=== PATIENT | male | born 1980 | race Asian ===

== ENCOUNTER 2020-06-10 06:48 | Inpatient (IN) | payer MEDICARE, OTHER ==
--- NOTE | 2020-06-10 07:21 | ED ---
General Adult HPI - General Chief complaint: Psychiatric Symptoms Stated complaint: Mental Health Time Seen by Provider: 06/10/20 06:55 Source: patient, police, RN notes reviewed, old records reviewed Limitations: altered mental status - History of Present Illness Initial comments: This is a 34-year-old male who presents emergency Department in the custody of police police did petition the patient to be evaluated. According to police he was found in the street making no sense and just babbling. I went in to interview the patient he did not answer any of my questions aside from that his from knowing his name. Patient just babbled the whole time I was in the room and did not make any sense. There is no further history available this time - Related Data Home Medications Medication Instructions Recorded Confirmed QUEtiapine [SEROquel] 400 mg PO HS 06/10/20 06/10/20 haloperidoL [Haloperidol] 5 mg PO BID 06/10/20 06/10/20 lamoTRIgine [LaMICtal] 200 mg PO HS 06/10/20 06/10/20 Allergies Allergy/AdvReac Type Severity Reaction Status Date / Time No Known Allergies Allergy Unverified 06/10/20 10:08 Review of Systems ROS Statement: Those systems with pertinent positive or pertinent negative responses have been documented in the HPI. ROS Other: All systems not noted in ROS Statement are negative. Past Medical History Additional Past Medical History / Comment(s): sammie Additional Past Surgical History / Comment(s): [facility] General Exam - General Exam Comments Initial Comments: GENERAL: Patient is well-developed and well-nourished. Patient is nontoxic and well- hydrated and is in no acute distress. ENT: Neck is soft and supple. No significant lymphadenopathy is noted. Oropharynx is clear. Moist mucous membranes. Neck has full range of motion without eliciting any pain. EYES: The sclera were anicteric and conjunctiva were pink and moist. Extraocular movements were intact and pupils were equal round and reactive to light. Eyelids were unremarkable. PULMONARY: Unlabored respirations. Good breath sounds bilaterally. No audible rales rhonchi or wheezing was noted. CARDIOVASCULAR: There is a regular rate and rhythm without any murmurs gallops or rubs. ABDOMEN: Soft and nontender with normal bowel sounds. SKIN: Skin is clear with no lesions or rashes and otherwise unremarkable. NEUROLOGIC: Patient is alert and oriented times one. Cranial nerves II through XII are grossly intact. Patient is moving all 4 extremities voluntarily MUSCULOSKELETAL: Normal extremities with adequate strength and full range of motion. LYMPHATICS: No significant lymphadenopathy is noted PSYCHIATRIC: Patient is babbling and hyperverbal and is not answering any of my questions Limitations: altered mental status Course Vital Signs 06/10/20 06/10/20 06/10/20 06:52 07:46 09:00 Temperature 97.5 F L 98.2 F Pulse Rate 106 H 71 62 Respiratory 19 20 19 Rate Blood Pressure 153/111 129/81 115/76 O2 Sat by Pulse 98 96 99 Oximetry Medical Decision Making - Lab Data Result diagrams: 06/10/20 07:43 06/10/20 07:43 Lab Results 06/10/20 06/10/20 06/10/20 Range/Units 07:08 07:10 07:43 WBC 8.9 (3.8-10.6) k/uL RBC 4.56 (4.30-5.90) m/uL Hgb 14.2 (13.0-17.5) gm/dL Hct 42.5 (39.0-53.0) % MCV 93.4 (80.0-100.0) fL MCH 31.2 (25.0-35.0) pg MCHC 33.4 (31.0-37.0) g/dL RDW 12.6 (11.5-15.5) % Plt Count 229 (150-450) k/uL Neutrophils % 80 % Lymphocytes % 12 % Monocytes % 6 % Eosinophils % 1 % Basophils % 1 % Neutrophils # 7.1 (1.3-7.7) k/uL Lymphocytes # 1.1 (1.0-4.8) k/uL Monocytes # 0.5 (0-1.0) k/uL Eosinophils # 0.1 (0-0.7) k/uL Basophils # 0.0 (0-0.2) k/uL Sodium (137-145) mmol/L Potassium (3.5-5.1) mmol/L Chloride (98-107) mmol/L Carbon Dioxide (22-30) mmol/L Anion Gap mmol/L BUN (9-20) mg/dL Creatinine (0.66-1.25) mg/dL Est GFR (CKD-EPI)AfAm (>60 ml/min/1.73 sqM) Est GFR (CKD-EPI)NonAf (>60 ml/min/1.73 sqM) Glucose (74-99) mg/dL Calcium (8.4-10.2) mg/dL Total Bilirubin (0.2-1.3) mg/dL AST (17-59) U/L ALT (4-49) U/L Alkaline Phosphatase (38-126) U/L Total Protein (6.3-8.2) g/dL Albumin (3.5-5.0) g/dL Urine Color Yellow Urine Appearance Clear (Clear) Urine pH 5.5 (5.0-8.0) Ur Specific [place] 1.037 H (1.001-1.035) Urine Protein 1+ H (Negative) Urine Glucose (UA) 1+ H (Negative) Urine Ketones 2+ H (Negative) Urine Blood Negative (Negative) Urine Nitrite Negative (Negative) Urine Bilirubin 1+ H (Negative) Urine Urobilinogen 3.0 (<2.0) mg/dL Ur Leukocyte Esterase Negative (Negative) Urine RBC 2 (0-5) /hpf Urine WBC 3 (0-5) /hpf Ur Squamous Epith Cells <1 (0-4) /hpf Urine Bacteria Rare H (None) /hpf Urine Mucus Many H (None) /hpf Urine Opiates Screen Not Detected (NotDetected) Ur Oxycodone Screen Not Detected (NotDetected) Urine Methadone Screen Not Detected (NotDetected) Ur Propoxyphene Screen Not Detected (NotDetected) Ur Barbiturates Screen Not Detected (NotDetected) U Tricyclic Antidepress Not Detected (NotDetected) Ur Phencyclidine Scrn Not Detected (NotDetected) Ur Amphetamines Screen Not Detected (NotDetected) U Methamphetamines Scrn Not Detected (NotDetected) U Benzodiazepines Scrn Not Detected (NotDetected) Urine Cocaine Screen Not Detected (NotDetected) U Marijuana (THC) Screen Not Detected (NotDetected) Serum Alcohol mg/dL 06/10/20 Range/Units 07:43 WBC (3.8-10.6) k/uL RBC (4.30-5.90) m/uL Hgb (13.0-17.5) gm/dL Hct (39.0-53.0) % MCV (80.0-100.0) fL MCH (25.0-35.0) pg MCHC (31.0-37.0) g/dL RDW (11.5-15.5) % Plt Count (150-450) k/uL Neutrophils % % Lymphocytes % % Monocytes % % Eosinophils % % Basophils % % Neutrophils # (1.3-7.7) k/uL Lymphocytes # (1.0-4.8) k/uL Monocytes # (0-1.0) k/uL Eosinophils # (0-0.7) k/uL Basophils # (0-0.2) k/uL Sodium 140 (137-145) mmol/L Potassium 3.3 L (3.5-5.1) mmol/L Chloride 106 (98-107) mmol/L Carbon Dioxide 20 L (22-30) mmol/L Anion Gap 14 mmol/L BUN 23 H (9-20) mg/dL Creatinine 1.04 (0.66-1.25) mg/dL Est GFR (CKD-EPI)AfAm >90 (>60 ml/min/1.73 sqM) Est GFR (CKD-EPI)NonAf >90 (>60 ml/min/1.73 sqM) Glucose 156 H (74-99) mg/dL Calcium 9.7 (8.4-10.2) mg/dL Total Bilirubin 1.1 (0.2-1.3) mg/dL AST 38 (17-59) U/L ALT 28 (4-49) U/L Alkaline Phosphatase 77 (38-126) U/L Total Protein 8.1 (6.3-8.2) g/dL Albumin 4.9 (3.5-5.0) g/dL Urine Color Urine Appearance (Clear) Urine pH (5.0-8.0) Ur Specific [place] (1.001-1.035) Urine Protein (Negative) Urine Glucose (UA) (Negative) Urine Ketones (Negative) Urine Blood (Negative) Urine Nitrite (Negative) Urine Bilirubin (Negative) Urine Urobilinogen (<2.0) mg/dL Ur Leukocyte Esterase (Negative) Urine RBC (0-5) /hpf Urine WBC (0-5) /hpf Ur Squamous Epith Cells (0-4) /hpf Urine Bacteria (None) /hpf Urine Mucus (None) /hpf Urine Opiates Screen (NotDetected) Ur Oxycodone Screen (NotDetected) Urine Methadone Screen (NotDetected) Ur Propoxyphene Screen (NotDetected) Ur Barbiturates Screen (NotDetected) U Tricyclic Antidepress (NotDetected) Ur Phencyclidine Scrn (NotDetected) Ur Amphetamines Screen (NotDetected) U Methamphetamines Scrn (NotDetected) U Benzodiazepines Scrn (NotDetected) Urine Cocaine Screen (NotDetected) U Marijuana (THC) Screen (NotDetected) Serum Alcohol <10 mg/dL Disposition Clinical Impression: Psychosis Disposition: ADMITTED IP TO THIS HOSP Referrals: None,Stated [REFERRING] - 1-2 days Time of Disposition: 13:48
[2020-06-10 07:28] LABS: Amphetamine Screen,Urine Not Detected (NotDetected); Barbiturate Screen,Urine Not Detected (NotDetected); Benzodiazepines Screen,Urine Not Detected (NotDetected); Cocaine Screen,Urine Not Detected (NotDetected); Methadone Screen, Urine Not Detected (NotDetected); Opiate Screen,Urine Not Detected (NotDetected); Oxycodone Screen, Urine Not Detected (NotDetected); Phencyclidine Screen,Urine Not Detected (NotDetected); Tricyclic Antidepressant,Urine Not Detected (NotDetected); Urn Cannabinoid Scrn Not Detected (NotDetected)
[2020-06-10 07:28] LABS: Appearance,Urine Clear (Clear); Bacteria,Urine Rare /hpf; Bilirubin,Urine 1+ (Negative); Blood,Urine Negative (Negative); Color,Urine Yellow; Glucose,Urine (UA) 1+ (Negative); Leukocyte Esterase,Urine Negative (Negative); Mucus,Urine Many /hpf; Nitrite,Urine Negative (Negative); PH, Urine 5.5 (5.0-8.0); Protein,Urine 1+ (Negative); RBC,Urine 2 /hpf (0-5); Specific Gravity,Urine 1.037 (1.001-1.035); Squamous Epithelial Cell,Urine <1 /hpf (0-4); WBC,Urine 3 /hpf (0-5)
[2020-06-10 07:36] LABS: Ketones,Urine 2+ (Negative)
[2020-06-10 08:01] LABS: Basophils % (A) 1 %; Eosinophils # (A) 0.1 k/uL (0-0.7); Eosinophils % (A) 1 %; HCT 42.5 % (39.0-53.0); HGB 14.2 gm/dL (13.0-17.5); Lymphocytes # (A) 1.1 k/uL (1.0-4.8); Lymphocytes % (A) 12 %; MCH 31.2 pg (25.0-35.0); MCHC 33.4 g/dL (31.0-37.0); MCV 93.4 fL (80.0-100.0); Mean Platelet Volume 7.9; Monocytes # (A) 0.5 k/uL (0-1.0); Monocytes % (A) 6 %; Neutrophils # (A) 7.1 k/uL (1.3-7.7); Neutrophils % (A) 80 %; Platelet Count 229 k/uL (150-450); RBC 4.56 m/uL (4.30-5.90); RDW 12.6 % (11.5-15.5); WBC 8.9 k/uL (3.8-10.6)
[2020-06-10 08:12] LABS: ALT 28 U/L (4-49); AST 38 U/L (17-59); African American GFR (CKD) >90 (>60 ml/min/1.73 sqM); Albumin 4.9 g/dL (3.5-5.0); Alcohol <10 mg/dL; Alkaline Phosphatase 77 U/L (38-126); Anion Gap 14 mmol/L; Blood Urea Nitrogen 23 mg/dL (9-20); Calcium 9.7 mg/dL (8.4-10.2); Carbon Dioxide 20 mmol/L (22-30); Chloride 106 mmol/L (98-107); Glucose 156 mg/dL (74-99); Non-African American GFR(CKD) >90 (>60 ml/min/1.73 sqM); Potassium 3.3 mmol/L (3.5-5.1); Sodium 140 mmol/L (137-145); Total Bilirubin 1.1 mg/dL (0.2-1.3); Total Protein 8.1 g/dL (6.3-8.2)
[2020-06-10] MEDS ORDERED: SODIUM CHLORIDE 0.9% 1,000 ML IV ONE (08:16)
[2020-06-10] MEDS ORDERED: SODIUM CHLORIDE 0.9% 500 ML 500 ML IV ONE (08:16)
[2020-06-10] MEDS ORDERED: LORazepam 1 MG TAB PO PRN (14:11)
[2020-06-10] MEDS ORDERED: ZIPRASIDONE 20 MG VIAL IM PRN (14:11)
[2020-06-10] MEDS ORDERED: MAG HYDROX/AL HYDROX/SIMETH 30 ML CUP PO PRN (14:11)
[2020-06-10] MEDS ORDERED: MAGNESIUM HYDROXIDE 2,400 MG/10 ML CUP PO PRN (14:11)
[2020-06-10] MEDS ORDERED: LORazepam 2 MG/ML INJ IM PRN ×2 (14:13→14:33)
[2020-06-10] MEDS: NICOTINE 14MG/24HR PATCH TRANSDERM SCH (14:46)
[2020-06-10] MEDS ORDERED: QUEtiapine 200 MG TAB PO SCH (21:00)
[2020-06-10] MEDS ORDERED: lamoTRIgine 100 MG TAB PO SCH (21:00)
[2020-06-11] MEDS: haloperidoL 5 MG TAB PO SCH ×2 (00:37→09:55)
[2020-06-11] MEDS: NICOTINE 14MG/24HR PATCH TRANSDERM SCH (09:55)
[2020-06-11] MEDS ORDERED: POTASSIUM CHLORIDE ER 20 MEQ TAB.ER PO STA (12:08)
--- NOTE | 2020-06-11 12:12 | P.CONS ---
History of Present Illness - Reason for Consult Medical clearance, hypokalemia - History of Present Illness 40-year-old male was admitted after petitioned by police to be evaluated in the psychiatric floor. Patient denied any fever chills nausea vomiting abdominal pain dysuria. Patient to potassium is bit low which will be replaced and. Patient doesn't have any significant medical problems does smoke a pack of cigarette per day Review of Systems REVIEW OF SYSTEMS: CONSTITUTIONAL: No fever, no malaise, no fatigue. HEENT: No recent visual problems or hearing problems. Denied any sore throat. CARDIOVASCULAR: No chest pain, orthopnea, PND, no palpitations, no syncope. PULMONARY: No shortness of breath, no cough, no hemoptysis. GASTROINTESTINAL: No diarrhea, no nausea, no vomiting, no abdominal pain. NEUROLOGICAL: No headaches, no weakness, no numbness. HEMATOLOGICAL: Denies any bleeding or petechiae. GENITOURINARY: Denies any burning micturition, frequency, or urgency. MUSCULOSKELETAL/RHEUMATOLOGICAL: Denies any joint pain, swelling, or any muscle pain. ENDOCRINE: Denies any polyuria or polydipsia. The rest of the 14-point review of systems is negative. Past Medical History Additional Past Medical History / Comment(s): sammie Additional Past Surgical History / Comment(s): sammie Medications and Allergies Home Medications Medication Instructions Recorded Confirmed Type QUEtiapine [SEROquel] 400 mg PO HS 06/10/20 06/10/20 History haloperidoL [Haloperidol] 5 mg PO BID 06/10/20 06/10/20 History lamoTRIgine [LaMICtal] 200 mg PO HS 06/10/20 06/10/20 History Allergies Allergy/AdvReac Type Severity Reaction Status Date / Time No Known Allergies Allergy Unverified 06/10/20 10:08 Physical Exam Vitals: Vital Signs Temp Pulse Resp BP Pulse Ox 06/11/20 06:21 98.3 F 68 16 135/78 06/10/20 14:31 99.1 F 65 14 141/86 98 PHYSICAL EXAMINATION: GENERAL: The patient is alert and oriented x3, not in any acute distress. Well developed, well nourished. HEENT: Pupils are round and equally reacting to light. EOMI. No scleral icterus. No conjunctival pallor. Normocephalic, atraumatic. No pharyngeal erythema. No thyromegaly. CARDIOVASCULAR: S1 and S2 present. No murmurs, rubs, or gallops. PULMONARY: Chest is clear to auscultation, no wheezing or crackles. ABDOMEN: Soft, nontender, nondistended, normoactive bowel sounds. No palpable organomegaly. MUSCULOSKELETAL: No joint swelling or deformity. EXTREMITIES: No cyanosis, clubbing, or pedal edema. NEUROLOGICAL: Gross neurological examination did not reveal any focal deficits. SKIN: No rashes. Results CBC & Chem 7: 06/10/20 07:43 06/10/20 07:43 Labs: Abnormal Lab Results - Last 24 Hours (Table) 06/10/20 Range/Units 07:43 HDL Cholesterol 31 L (40-60) mg/dL Assessment and Plan Plan: -Mild hypokalemia potassium will be replaced -Bipolar disorder with possible psychosis: Management as per primary service -Nicotine abuse: Counseling was provided
--- NOTE | 2020-06-11 12:34 | P.HP ---
Psychiatric H&P - . H&P Date: 06/11/20 History & Physical: Allergies Allergy/AdvReac Type Severity Reaction Status Date / Time No Known Allergies Allergy Unverified 06/10/20 10:08 Vital Signs Temp 98.3 F 06/11/20 06:21 Pulse 68 06/11/20 06:21 Resp 16 06/11/20 06:21 BP 135/78 06/11/20 06:21 Pulse Ox 98 06/10/20 14:31 Laboratory Last Values WBC 8.9 k/uL (3.8-10.6) 06/10/20 07:43 RBC 4.56 m/uL (4.30-5.90) 06/10/20 07:43 Hgb 14.2 gm/dL (13.0-17.5) 06/10/20 07:43 Hct 42.5 % (39.0-53.0) 06/10/20 07:43 MCV 93.4 fL (80.0-100.0) 06/10/20 07:43 MCH 31.2 pg (25.0-35.0) 06/10/20 07:43 MCHC 33.4 g/dL (31.0-37.0) 06/10/20 07:43 RDW 12.6 % (11.5-15.5) 06/10/20 07:43 Plt Count 229 k/uL (150-450) 06/10/20 07:43 Neutrophils % 80 % 06/10/20 07:43 Lymphocytes % 12 % 06/10/20 07:43 Monocytes % 6 % 06/10/20 07:43 Eosinophils % 1 % 06/10/20 07:43 Basophils % 1 % 06/10/20 07:43 Neutrophils # 7.1 k/uL (1.3-7.7) 06/10/20 07:43 Lymphocytes # 1.1 k/uL (1.0-4.8) 06/10/20 07:43 Monocytes # 0.5 k/uL (0-1.0) 06/10/20 07:43 Eosinophils # 0.1 k/uL (0-0.7) 06/10/20 07:43 Basophils # 0.0 k/uL (0-0.2) 06/10/20 07:43 Sodium 140 mmol/L (137-145) 06/10/20 07:43 Potassium 3.3 mmol/L (3.5-5.1) L 06/10/20 07:43 Chloride 106 mmol/L (98-107) 06/10/20 07:43 Carbon Dioxide 20 mmol/L (22-30) L 06/10/20 07:43 Anion Gap 14 mmol/L 06/10/20 07:43 BUN 23 mg/dL (9-20) H 06/10/20 07:43 Creatinine 1.04 mg/dL (0.66-1.25) 06/10/20 07:43 Est GFR (CKD-EPI)AfAm >90 (>60 ml/min/1.73 sqM) 06/10/20 07:43 Est GFR (CKD-EPI)NonAf >90 (>60 ml/min/1.73 sqM) 06/10/20 07:43 Glucose 156 mg/dL (74-99) H 06/10/20 07:43 Calcium 9.7 mg/dL (8.4-10.2) 06/10/20 07:43 Total Bilirubin 1.1 mg/dL (0.2-1.3) 06/10/20 07:43 AST 38 U/L (17-59) 06/10/20 07:43 ALT 28 U/L (4-49) 06/10/20 07:43 Alkaline Phosphatase 77 U/L (38-126) 06/10/20 07:43 Total Protein 8.1 g/dL (6.3-8.2) 06/10/20 07:43 Albumin 4.9 g/dL (3.5-5.0) 06/10/20 07:43 Triglycerides 113 mg/dL (<150) 06/10/20 07:43 Cholesterol 150 mg/dL (<200) 06/10/20 07:43 LDL Cholesterol, Calc 96 mg/dL (0-99) 06/10/20 07:43 HDL Cholesterol 31 mg/dL (40-60) L 06/10/20 07:43 TSH 1.340 mIU/L (0.465-4.680) 06/10/20 07:43 Urine Color Yellow 06/10/20 07:10 Urine Appearance Clear (Clear) 06/10/20 07:10 Urine pH 5.5 (5.0-8.0) 06/10/20 07:10 Ur Specific [place] 1.037 (1.001-1.035) H 06/10/20 07:10 Urine Protein 1+ (Negative) H 06/10/20 07:10 Urine Glucose (UA) 1+ (Negative) H 06/10/20 07:10 Urine Ketones 2+ (Negative) H 06/10/20 07:10 Urine Blood Negative (Negative) 06/10/20 07:10 Urine Nitrite Negative (Negative) 06/10/20 07:10 Urine Bilirubin 1+ (Negative) H 06/10/20 07:10 Urine Urobilinogen 3.0 mg/dL (<2.0) 06/10/20 07:10 Ur Leukocyte Esterase Negative (Negative) 06/10/20 07:10 Urine RBC 2 /hpf (0-5) 06/10/20 07:10 Urine WBC 3 /hpf (0-5) 06/10/20 07:10 Ur Squamous Epith Cells <1 /hpf (0-4) 06/10/20 07:10 Urine Bacteria Rare /hpf (None) H 06/10/20 07:10 Urine Mucus Many /hpf (None) H 06/10/20 07:10 Urine Opiates Screen Not Detected (NotDetected) 06/10/20 07:08 Ur Oxycodone Screen Not Detected (NotDetected) 06/10/20 07:08 Urine Methadone Screen Not Detected (NotDetected) 06/10/20 07:08 Ur Propoxyphene Screen Not Detected (NotDetected) 06/10/20 07:08 Ur Barbiturates Screen Not Detected (NotDetected) 06/10/20 07:08 U Tricyclic Antidepress Not Detected (NotDetected) 06/10/20 07:08 Ur Phencyclidine Scrn Not Detected (NotDetected) 06/10/20 07:08 Ur Amphetamines Screen Not Detected (NotDetected) 06/10/20 07:08 U Methamphetamines Scrn Not Detected (NotDetected) 06/10/20 07:08 U Benzodiazepines Scrn Not Detected (NotDetected) 06/10/20 07:08 Urine Cocaine Screen Not Detected (NotDetected) 06/10/20 07:08 U Marijuana (THC) Screen Not Detected (NotDetected) 06/10/20 07:08 Serum Alcohol <10 mg/dL 06/10/20 07:43 06/11/20 08:38 This is a 34-year-old male who presents emergency Department in the custody of police police filled out a petition for the patient to be evaluated. According to police he was found in the street making no sense and just babbling. I went in to interview the patient he did not answer any of my questions aside from knowing his name. Patient just babbled the whole time in the emergency room and did not make any sense. The patient was brought up to the psychiatric unit and having had some medicine is doing better. It seems that there was a break in service is at the [facility] connected to the [place] [id number] and the patient has not had any medicine for a month and became quite psychotic. ( I think he has a baseline difficulty with cognition but he can at least try to answer questions) he is basically here to get back on his medications. Current medications: He has not been taking be what he was supposed to be on was evidently Seroquel 400 Haldol 5 twice a day and Lamictal. Past psychiatric history: The patient is a poor historian so this was hard to establish she has not been in our hospital before. In addition to current medicine he has taken Lexapro and Cogentin in the past Medical problems are denied. On his labs he had mild hypokalemia which will be replaced. He appears to have mild exophthalmos but his TSH is fine Social history: The patient says he is the fifth of 10 children born to his parents and stayed together until dad when the patient was 26 he does not know why. He denies anyone else in the family has any kind of psychiatric problem as far as he knows he had a normal and early development. He completed the 12th grade. He worked briefly at [employer] but is on disability and has not worked for many years he has no history. No legal issues. He lives in a fci. (An example of his cognitive functioning is he had no idea how many people were in his fci he tried to count them by remembering their names and room but could not come up with a number) He denies any drug use. And toxicology was negative Mental status exam: The patient is anxious pacing withdrawn disheveled dressed in a hospital gown which keeps falling open and he grabbed and pulled it closed. I asked him what the week it was he said he would have to look at a calendar. I asked him to name the [place] he got [place] then [facility] try [place] and [place]. So he started answering the question of forgot what the question was and rambled off. When asked to subtract 7 from 100 he was overwhelmed so I asked him to subtract 7 from 10 he was overwhelmed so I asked him to use his fingers and see how many would be left if he lost 7 he held up his hands counted all 10 fingers and then couldn't remember what it was he was supposed to do. When asked him AND snakes are alike he was overwhelmed. Gait and station normal eye contact is decreased. He did not seem to be responding t o voices and he denied any. Diagnosis: Psychosis NOS Plan I'll not restart the Lamictal since he been off to long it would be dangerous and I'm not sure as indicated he does not seem to be depressed. I don't like to try both Haldol and Seroquel since Haldol causes progressive brain damage and is redundant to use both Seroquel and Haldol. So increase his Seroquel to 600 forget the Lamictal and Haldol and see if we can stabilize him on one medicine.
[2020-06-11 15:39] LABS: Hemoglobin A1C 5.3 % (4.0-6.0)
[2020-06-11] MEDS: QUEtiapine 200 MG TAB PO SCH (21:50)
--- NOTE | 2020-06-12 08:41 | P.PN ---
Subjective Progress Note Date: 06/12/20 Principal diagnosis: Diagnosis: Psychosis NOS Subjective: Patient says he slept well his appetite is fine he has no clear plans for doing well after discharge (I think that is due to cognitive impairment) Objective: Has some concern about his labs they seem pretty clear to indicate diabetes 1. Blood sugar 156 2. 1+ sugar in his urine 3. Despite high blood sugmar urine was 2+ for sugar Vital signs: Temperature 97.9 heart rate 80 blood pressure 112/74 respirations 16 Group function patient has not been able to go and probably could not function in groups due to confusion Staff assessment: Patient is calm stands staring at himself in the mirror with no expression seems confused. Disheveled dressed only in hospital gown speech is slow and soft and he is withdrawn from peer and staff. Mental status exam patient seems somewhat anxious due to confusion as to where he is why he is here what he needs to do. However is cooperative. I found him standing in front of his marriage staring is that she wasn't sure what he was supposed to do with what he saw. He had been reading a patient's rights both I asked him what that was about and he did not know. He said he was hungry and was time for breakfast was not going to breakfast because he is out of tune with the schedule. He walks somewhat slowly little eye contact decrease psychomotor activity. Medication: He is just on Seroquel 600 at night. I didn't think he needed Haldol as well since it can be brain damaging and he already has some cognitive impairment. Whether he needs a Lamictal or not I don't know what was his cognitive difficulties I would have to be sure someone else was guaranteeing that he always takes it would be dangerous. Assessment: I think the psychosis seems to be clear and his answers at least somewhat fit the questions what I see is residual cognitive impairment. Plan: We need to work him up for diabetes make sure he's got outpatient care they guarantees he gets his medicine and takes it and a guardian and whatever else he might need since he can't make basic decisions. I don't think he needs anything more than the Seroquel for his psychosis Objective - Vital Signs Vital signs: Vital Signs Temp 97.9 F 06/12/20 06:54 Pulse 80 06/12/20 06:54 Resp 16 06/12/20 06:54 BP 112/74 06/12/20 06:54 Pulse Ox 98 06/12/20 06:54 - Labs CBC & Chem 7: 06/10/20 07:43 06/10/20 07:43
[2020-06-12] MEDS: NICOTINE 14MG/24HR PATCH TRANSDERM SCH (10:01)
[2020-06-12] MEDS: QUEtiapine 200 MG TAB PO SCH (21:06)
--- NOTE | 2020-06-13 07:59 | P.PN ---
Subjective Progress Note Date: 06/13/20 Principal diagnosis: Diagnosis: Psychosis NOS Subjective: The patient says he sleeps well, has a good appetite, in fact he kept interrupting our session wondering when breakfast was ready. He denies voices says he is not sad that he is not angry he is not scared Objective: Vital signs temperature 90.8 for heart rate 101 respirations 16 blood pressure 132/75 He has had asked for internal medicine to make an opinion as to whether the patient is diabetic I do not see a so I'll repeat that requests. Groups: The patient has not gone to groups if he did I don't think he could follow what was happening Staff assessment: Patient appears to sleep well Mental status: The patient is cooperative, I saw him standing at the desk for quite a while is staring into space waiting for breakfast. When he sat down I asked him how he had slept and took almost a minute for him to say, "OK". In fact he takes a long time to answer any question. When asked him if he is hearing voices he will eventually say no. However in the middle of talking he will glance up at the ceiling or the corner of the room or examine his hands. He does not seem lethargic so is tolerating the Seroquel well. He is not anxious or agitated and he seems significantly cognitively impaired so sorry for me to assess whether this is psychosis or he just has trouble analyzing what is happening. Assessment: it is very difficult to assess his function if he doesn't go to group. He was asked to come to group and refuses yesterday. I emphasized that he has to go to group frustrated tell whether he is doing well enough to discharge. Medications Seroquel 600 daily at bedtime Objective - Vital Signs Vital signs: Vital Signs Temp 98.4 F 06/13/20 07:00 Pulse 101 H 06/13/20 07:00 Resp 16 06/13/20 07:00 BP 132/75 06/13/20 07:00 Pulse Ox 98 06/12/20 06:54 - Labs CBC & Chem 7: 06/10/20 07:43 06/10/20 07:43
[2020-06-13] MEDS: NICOTINE 14MG/24HR PATCH TRANSDERM SCH (10:34)
[2020-06-13] MEDS: QUEtiapine 200 MG TAB PO SCH (21:08)
[2020-06-14] MEDS: NICOTINE 14MG/24HR PATCH TRANSDERM SCH (09:16)
--- NOTE | 2020-06-14 10:26 | P.PN ---
Subjective Progress Note Date: 06/14/20 Principal diagnosis: Diagnosis: Psychosis NOS Subjective: The patient was in his room putting everything in a paper bag. Asked him if he was cleaning up he said no which is there in the bag. He was willing to come down to my office at which point he was looking under my desk s taring in the corner looking out the window when I asked him when he was looking at he said "nothing". Objective: Patient slept well last night: Groups the patient does not attend makes it hard to assess his general functioning Staff assessment is that the patient seems calm, withdrawn, slow responses, guarded and he denies psychotic symptoms but does appear to be distracted slow to answer simple questions and often looking off as if hearing someone. He has no insight, is alert, awake, no signs of delirium, able to follow directions. He seems to have difficulty making his own decisions. He does not interact with peers except on approach the same is true for staff Vital signs: Temperature 90.8 for heart rate 101 respirations 16 blood pressure 132/75 Labs: Nothing new He seems to be having more trouble than yesterday although he is on a good dose of Seroquel if possible that he needs something more powerful. He had been on Haldol plus Seroquel. For not going to increase his Seroquel as he is not drowsy or dizzy or constipated because it would be nice to stick with one antipsychotic if possible. He was oriented to being in the hospital and at the current Pres. is Babatunde Escobedo and that this is 2019. He did not know the day of the week or the month. Assessment patient seems to be a little worse today in his confusion. Plan: Medications Seroquel 600 mg daily at bedtime which he had been taking regularly. interestingly has not needed the nicotine patch or Ativan I'm going to increase to 800. Objective - Vital Signs Vital signs: Vital Signs Temp 98.4 F 06/13/20 07:00 Pulse 101 H 06/13/20 07:00 Resp 16 06/13/20 07:00 BP 132/75 06/13/20 07:00 Pulse Ox 98 06/12/20 06:54 - Labs CBC & Chem 7: 06/10/20 07:43 06/10/20 07:43
[2020-06-14] MEDS: QUEtiapine 400 MG TAB PO SCH (19:21)
[2020-06-14] MEDS: ACETAMINOPHEN TAB 325 MG TAB PO PRN (19:22)
[2020-06-15] MEDS: NICOTINE 14MG/24HR PATCH TRANSDERM SCH (08:51)
--- NOTE | 2020-06-15 10:27 | P.PN ---
Progress Note - Text Progress Note Date: 06/15/20 I reviewed medical records ,did interview patient and case was discussed in treatment team Patient was standing in front of nursing station and agreed to follow me to office Slept 4 hours ,had PRN Ativan at 19:00 Does not participate in groups Interval History: Patient was dressed in his own cloth ,poor historian ,when I asked him about his family ,he replied "why you want to know ,my dad is buried in ground and my mom living in [place]"he talked about living in [place] till end of middle school then they moved to [place] ,he denies any sleeping problem saying "I slept 7 hours" Mental Status Exam: General Appearance: Patient appears to be stated age is alert, ,cooperative. Patient appears to have marginal hygiene Behavior: Patient was seating calmly ,no agitation ,avoiding eyes contact ,was looking at window off and on Speech: Patient's speech is limited in productivity Mood/Affect: flat affect Suicidality/Homicidality: denies any suicidal or homicidal ideation Perceptions: denies any hallucintion or delusional thinking but seems preoccupied , Though content/process: some halting and blocking Memory and concentration: not able to assess Judgment and insight: limited Assessment Psychosis NOS Plan: -Patient continues to meet criteria for inpatient psychiatric admission for symptom stabilization and safety.,Continue Seroquel 800 mg,encourage participation in groups,SW on board for post-discharge plan
[2020-06-15] MEDS: QUEtiapine 400 MG TAB PO SCH (20:14)
[2020-06-16] MEDS: NICOTINE 14MG/24HR PATCH TRANSDERM SCH (08:27)
--- NOTE | 2020-06-16 17:30 | P.PN ---
Progress Note - Text Progress Note Date: 06/16/20 Subjective: Patient was seen today as a cross coverage for Dr. Sandy. The patient was evaluated, chart reviewed, case discussed with the treatment team. Patient reports good sleep last night with Seroquel, and appetite was reported as "good ". Patient has not been going to groups and other unit activities. The patient is compliant with his medications and denies any adverse reactions. Patient continues to present psychotic per nursing report. He was pacing for most of the day, and has bizarre behavior looking at other patient's rooms. Patient was very superficial in his answers, and he denies feeling depressed, hopeless, or suicidal. Denies any mood swings, irritability, or homicidal ideation. He denies any hallucinations, but he seems responding to internal stimuli. No manic symptoms reported or noticed. Patient presents confused and was mumbling nonsensical words. Objective: Vitals has been reviewed. Mental status examination; Appearance: The patient appears stated age, poorly groomed and dressed, no specific features. Gait/posture: Normal gait, Normal arm swinging: No abnormal movements. Attitude and behavior: Not engaged, not cooperative, poor eye contact. Motor activity: Decreased psychomotor activity Speech: Not spontaneous, slow, soft volume Mood: Anxious Affect: Flat Thought form: Poverty of thoughts Thought content: Non-delusional reported, denies suicidal thoughts, denies homicidal thoughts, denies intentions or plans. Perception: Denies any auditory or visual hallucinations, but presents responding to internal stimuli Attention: No impairment. Orientation: Patient patient was oriented to time place person and situation. Insight: Patient has fair insight about limited psychiatric disorder. Judgment: Patient has fair judgment about limited psychiatric treatment. Assessment: Psychotic disorder, unspecified. Rule out schizophrenia Plan: Continue inpatient level of care due to need for further stabilization Precautions: Continue 15 minutes check for safety. Consider medical consultation if any acute medical issues arise. Provide the patient individual, group therapy, substance use disorder counseling to give better insight and learn coping skills. Medications: Seroquel 800 mg at bedtime for psychotic symptoms. Nicotine replacement treatment. Continue as needed medications for psychiatric emergencies including psychosis, agitation and anxiety. Continue non-psychiatric medications for medical conditions as recommended by the medical team. Discharge patient to OUTPATIENT services upon a stabilization
[2020-06-16] MEDS: QUEtiapine 400 MG TAB PO SCH (20:08)
[2020-06-17] MEDS: NICOTINE 14MG/24HR PATCH TRANSDERM SCH (09:20)
[2020-06-17 13:19] VITALS: BMI 25.7
--- NOTE | 2020-06-17 14:28 | P.PN ---
Progress Note - Text Progress Note Date: 06/17/20 Subjective: Patient was seen today as a cross coverage for Dr. Sandy. The patient was evaluated, chart reviewed, case discussed with the treatment team. Patient continues to present same as yesterday guarded and to some degree paranoid. He was superficial in his answers, and seems responding to internal stimuli. He reports good sleep and fair appetite. Patient doesn't attend groups and pacing for most of the time in the hallway. He continues to take his medications and denies side effects. Denies depression, feeling hopeless or suicidal. Denies any hallucinations, paranoid ideation, or delusions. Denies any manic symptoms. Objective: Vitals has been reviewed. Mental status examination; Appearance: The patient appears stated age, poorly groomed and dressed, no specific features. Gait/posture: Normal gait, Normal arm swinging: No abnormal movements. Attitude and behavior: Not engaged, not cooperative, poor eye contact. Motor activity: Decreased psychomotor activity Speech: Not spontaneous, slow, soft volume Mood: Anxious Affect: Flat Thought form: Poverty of thoughts Thought content: Non-delusional reported, denies suicidal thoughts, denies homicidal thoughts, denies intentions or plans. Perception: Denies any auditory or visual hallucinations, but presents responding to internal stimuli Attention: No impairment. Orientation: Patient patient was oriented to time place person and situation. Insight: Patient has fair insight about limited psychiatric disorder. Judgment: Patient has fair judgment about limited psychiatric treatment. Assessment: Psychotic disorder, unspecified. Rule out schizophrenia Plan: Continue inpatient level of care due to need for further stabilization Precautions: Continue 15 minutes check for safety. Consider medical consultation if any acute medical issues arise. Provide the patient individual, group therapy, substance use disorder counseling to give better insight and learn coping skills. Medications: Seroquel 800 mg at bedtime for psychotic symptoms. Nicotine replacement treatment. Continue as needed medications for psychiatric emergencies including psychosis, agitation and anxiety. Continue non-psychiatric medications for medical conditions as recommended by the medical team. Discharge patient to OUTPATIENT services upon a stabilization
[2020-06-17] MEDS: ACETAMINOPHEN TAB 325 MG TAB PO PRN (20:03)
[2020-06-17] MEDS: QUEtiapine 400 MG TAB PO SCH (20:03)
--- NOTE | 2020-06-18 08:47 | P.PN ---
Progress Note - Text Progress Note Date: 06/18/20 I reviewed medical records ,did interview patient and case was discussed in treatment team Patient was standing in front of nursing station and agreed to follow me to office Slept :6 hours,no PRN since 06/14 TODAY VITALS:Temp:97.6,P:99,R:18,BP:105/65 Withdrawn ,no peer interaction No group participation No physical c/o Interval History: Patient was dressed in his own cloth ,unkept,talked about his Room and board saying "I do not want to go back ,they are spitting in my drink and controlling my food"persecutory delusion ,paranoia , kept talking about "I am adult I do not need guardian ,I have income and I want SW to help me to find my own place",loose of association,denies any hallucination ,seems responding to internal stimuli, Mental Status Exam: General Appearance: Patient appears to be stated age is alert, ,cooperative. Patient appears to have marginal hygiene,staring fixated look Behavior: Patient was seating calmly ,no agitation Speech: hyperverbal ,increased productivity Mood/Affect: flat affect Suicidality/Homicidality: denies any suicidal or homicidal ideation Perceptions: denies any hallucintion but seems responding to internal cues Though content/process: tangential ,illogical ,loose of association Memory and concentration: not able to assess Judgment and insight: limited Assessment Schizophrenia ,paranoia with acute exacerbation Plan: -Patient continues to meet criteria for inpatient psychiatric admission for symptom stabilization and safety.,Continue Seroquel 800 mg,encourage participation in groups,SW on board for post-discharge plan
[2020-06-18] MEDS: NICOTINE 14MG/24HR PATCH TRANSDERM SCH (09:44)
[2020-06-18] MEDS: ACETAMINOPHEN TAB 325 MG TAB PO PRN (15:38)
[2020-06-18] MEDS: QUEtiapine 400 MG TAB PO SCH (20:33)
--- NOTE | 2020-06-19 09:29 | P.PN ---
Progress Note - Text Progress Note Date: 06/19/20 I reviewed medical records ,did interview patient and case was discussed in treatment team Patient was standing in front of nursing station and agreed to follow me to office Slept :6 hours,no PRN since 06/14 Minimal group participation SW NOTE:((Tx team meeting held, case discussed. Pt is improving slightly. He is still unclear when talking about his housing and dc plans however. Pt's guardians state pt can return to the room and board upon dc and continue to f/u with [facility]. 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 Patient appears to have marginal hygiene,staring fixated look Behavior: Patient was seating calmly ,no agitation Speech: hyperverbal ,increased productivity Mood/Affect: flat affect Suicidality/Homicidality: denies any suicidal or homicidal ideation Perceptions: denies any hallucintion but seems responding to internal cues Though content/process: tangential ,illogical ,loose of association Memory and concentration: not able to assess Judgment and insight: limited Assessment Schizoaffective ,bipolar Plan: -Patient continues to meet criteria for inpatient psychiatric admission for symptom stabilization and safety.,Continue Seroquel 800 mg add Lamictal ,encourage participation in groups,SW on board for post-discharge plan
[2020-06-19] MEDS: NICOTINE 14MG/24HR PATCH TRANSDERM SCH (10:19)
[2020-06-19] MEDS: QUEtiapine 400 MG TAB PO SCH (20:28)
[2020-06-20] MEDS: lamoTRIgine 25 MG TAB PO SCH (09:11)
[2020-06-20] MEDS: NICOTINE 14MG/24HR PATCH TRANSDERM SCH (09:11)
--- NOTE | 2020-06-20 12:28 | P.PN ---
Progress Note - Text Progress Note Date: 06/20/20 I reviewed medical records ,did interview patient and case was discussed in treatment team Patient was standing in front of nursing station and agreed to follow me to office Slept 6 hours Minimal group participation From yesterday group: ((Pt. was irritated upon a peer interrupting the pt. when participating in group activity. Pt. stated "I can say what I want to. I am an adult." Pt. was inconsistently redirectable)) Interval History: Patient was dressed in his own cloth ,unkept,talked about unrealistic goals regarding his future,stated "Today I do not have enough story for you ",denies any sleeping or appetite problem,denies any side-effects from medications Mental Status Exam: General Appearance: Patient appears to be stated age is alert, ,cooperative. Patient appears to have marginal hygiene,staring fixated look Behavior: Patient was seating calmly ,no agitation Speech: hyperverbal ,increased productivity Mood/Affect: flat affect Suicidality/Homicidality: denies any suicidal or homicidal ideation Perceptions: denies any hallucintion but seems responding to internal cues Though content/process: tangential ,illogical ,loose of association Memory and concentration: not able to assess Judgment and insight: limited Assessment Schizoaffective ,bipolar Plan: -Patient continues to meet criteria for inpatient psychiatric admission for symptom stabilization and safety.,Continue Seroquel 800 mg add Lamictal ,encourage participation in groups,SW on board for post-discharge plan
[2020-06-20] MEDS: QUEtiapine 400 MG TAB PO SCH (20:21)
[2020-06-21] MEDS: NICOTINE 14MG/24HR PATCH TRANSDERM SCH (08:08)
[2020-06-21] MEDS: lamoTRIgine 25 MG TAB PO SCH (08:09)
--- NOTE | 2020-06-21 09:55 | P.PN ---
Progress Note - Text Progress Note Date: 06/21/20 I reviewed medical records ,did interview patient and case was discussed in treatment team Slept 6.5 ,minimal participation in groups ,went to one group yesterday ,no interaction with other patients Today vitals:Temp 97.7,P:80,R:16,BP:111/76 No agitation or aggressive behavior Interval History: Patient was dressed in his own cloth ,poor historian ,was laying in bed and refused to follow me to office saying "I am tired today,I just need to rest my head",denies any hallucination ,denies any suicidal or homicidal ideation ,no sleeping or appetite problems,compliant with medications and denies any side- effects Mental Status Exam: General Appearance: Patient appears to be stated age is alert, ,cooperative. Patient appears to have marginal hygiene Behavior: Patient was laying in bed,no agitation ,avoiding eyes contact Speech: Patient's speech is limited in productivity Mood/Affect: flat affect Suicidality/Homicidality: denies any suicidal or homicidal ideation Perceptions: denies any hallucintion or delusional thinking but seems preoccupied Though content/process: tangential Memory and concentration: grossly intact Judgment and insight: limited Assessment Schizoaffective versus Schizophrenia Plan: -Patient continues to meet criteria for inpatient psychiatric admission for symptom stabilization and safety.,Continue Seroquel 800 mg and Lamictal ,encourage participation in groups,SW on board for post-discharge plan
[2020-06-21] MEDS: QUEtiapine 400 MG TAB PO SCH (20:06)
[2020-06-22] MEDS: lamoTRIgine 25 MG TAB PO SCH (10:03)
[2020-06-22] MEDS: NICOTINE 14MG/24HR PATCH TRANSDERM SCH (10:03)
--- NOTE | 2020-06-22 10:27 | P.PN ---
Progress Note - Text Progress Note Date: 06/22/20 I reviewed medical records ,did interview patient and case was discussed in treatment team Slept 7 hours ,minimal participation in groups ,went to one group yesterday ,no interaction with other patients Today vitals:Temp 98,P:76,R:17,BP:103/64 No agitation or aggressive behavior Interval History: Patient was dressed in his own cloth ,poor historian ,was laying in bed and agreed to follow me to office ,he stated "I do feel that I am back to normal ,I am new person ,my thinking is clear"head",denies any hallucination ,denies any suicidal or homicidal ideation ,no sleeping or appetite problems,compliant with medications and denies any side-effects Mental Status Exam: General Appearance: Patient appears to be stated age is alert, ,cooperative. Patient appears to have marginal hygiene Behavior: Patient was seating calmly,no agitation ,fair eyes contact Speech: Patient's speech is limited in productivity but coherent Mood/Affect: flat affect Suicidality/Homicidality: denies any suicidal or homicidal ideation Perceptions: denies any hallucintion or delusional thinking but seems preoccupied Though content/process: tangential Memory and concentration: grossly intact Judgment and insight: limited Assessment Schizoaffective versus Schizophrenia Plan: -Patient continues to meet criteria for inpatient psychiatric admission for symptom stabilization and safety.,Continue Seroquel 800 mg and Lamictal ,encourage participation in groups,SW on board for post-discharge plan
[2020-06-22] MEDS: QUEtiapine 400 MG TAB PO SCH (20:18)
[2020-06-23] MEDS: lamoTRIgine 25 MG TAB PO SCH (09:18)
[2020-06-23] MEDS: NICOTINE 14MG/24HR PATCH TRANSDERM SCH (09:18)
--- NOTE | 2020-06-23 16:10 | P.PN ---
Subjective Progress Note Date: 06/23/20 Principal diagnosis: Diagnosis: Psychosis NOS Subjective: When asked him what his plan for doing well after he leaves is, he said that he will live simply but he could not elaborate on that.. Objective: Vital signs temperature 97.6 heart rate 65 respiration 16 blood pressure 100/64 Groups The patient attends but is anxious and tends to wander in and out affect seems blunted does not interact much with peers. Labs nothing recent Staff assessment patient is oriented reasonable insight self-care denies suicidal or homicidal ideas denies hallucinations or delusions interacts well with peers is shy and withdrawn but will respond well even to peers when appropriate. Mental status exam: Patient's affect is flat he came readily 8 and station are normal some decreased psychomotor activity decreased eye contact evidence of responding to voices no tearfulness or aggression Assessment patient continues to meet criteria for psychiatric admission for symptom stabilization a the is on high-dose Seroquel is getting on Lamictal and participating in the group no change suggested at this time. Objective - Vital Signs Vital signs: Vital Signs Temp 97.6 F 06/23/20 06:58 Pulse 65 06/23/20 06:58 Resp 16 06/23/20 06:58 BP 100/64 06/23/20 06:58 Pulse Ox 98 06/22/20 07:01 - Labs CBC & Chem 7: 06/10/20 07:43 06/10/20 07:43
[2020-06-23] MEDS: QUEtiapine 400 MG TAB PO SCH (20:12)
[2020-06-24] MEDS: lamoTRIgine 25 MG TAB PO SCH (09:02)
[2020-06-24] MEDS: NICOTINE 14MG/24HR PATCH TRANSDERM SCH (09:02)
--- NOTE | 2020-06-24 11:31 | P.PN ---
Subjective Progress Note Date: 06/24/20 Principal diagnosis: Diagnosis: Psychosis NOS Subjective: The patient had some questions about his medicine basically that #800 for Seroquel seem like a lot. I explained to him that just means the weight of the pill that yes it is a good solid dose but well within the therapeutic range not dangerously high. He did not complain of any particular problems with being lethargic or dizzy or constipated. In feels like the medicines are helping him, Objective: Vital signs temperature 97.8 heart rate 81 respirations 16 blood pressure 104/68 Labs: nothing new Groups the patient been attending some groups tends to get anxious and leave early and have trouble interacting with peers and is redirectable and attentive when he is there Staff report: Quiet doesn't talk much able take care of ADLs denies suicidal homicidal or psychotic symptoms and has been sleeping reasonably well Mental status exam: Patient is flat affect gait and station are normal psychomotor activity is normal eye contact somewhat decreased no tearfulness no agitation no signs of responding to voices Assessment: Appears to be a handling the medication well with benefit Plan: No change in medication. Objective - Vital Signs Vital signs: Vital Signs Temp 97.8 F 06/24/20 06:30 Pulse 81 06/24/20 06:30 Resp 16 06/24/20 06:30 BP 104/68 06/24/20 06:30 Pulse Ox 98 06/22/20 07:01 Intake & Output 06/23/20 06/24/20 06/24/20 18:59 06:59 18:59 Weight 77.5 kg - Labs CBC & Chem 7: 06/10/20 07:43 06/10/20 07:43
[2020-06-24] MEDS: QUEtiapine 400 MG TAB PO SCH (19:43)
[2020-06-25] MEDS: lamoTRIgine 25 MG TAB PO SCH (08:27)
[2020-06-25] MEDS: NICOTINE 14MG/24HR PATCH TRANSDERM SCH (08:27)
--- NOTE | 2020-06-25 10:03 | P.PN ---
Progress Note - Text Progress Note Date: 06/25/20 I reviewed medical records ,did interview patient and case was discussed in treatment team Slept 7 hours ,minimal participation in groups ,went to one group yesterday ,no interaction with other patients No agitation or aggressive behavior Interval History: Patient was dressed in his own cloth ,poor historian ,was in lounge and agreed to follow me to office ,he stated ""I just feeling tired",denies any hallucination ,denies any suicidal or homicidal ideation ,no sleeping or appetite problems,compliant with medications and denies any side-effects Mental Status Exam: General Appearance: Patient appears to be stated age is alert, ,cooperative. Patient appears to have marginal hygiene Behavior: Patient was seating calmly,no agitation ,fair eyes contact Speech: Patient's speech is limited in productivity but coherent Mood/Affect: flat affect Suicidality/Homicidality: denies any suicidal or homicidal ideation Perceptions: denies any hallucintion or delusional thinking but seems preoccupied Though content/process: tangential Memory and concentration: grossly intact Judgment and insight: limited Assessment Schizoaffective versus Schizophrenia Plan: -Patient continues to meet criteria for inpatient psychiatric admission for symptom stabilization and safety.,Continue Seroquel 800 mg and Lamictal ,encourage participation in groups,SW on board for post-discharge plan
[2020-06-25] MEDS: QUEtiapine 400 MG TAB PO SCH (20:40)
[2020-06-26] MEDS: lamoTRIgine 25 MG TAB PO SCH (09:02)
[2020-06-26] MEDS: NICOTINE 14MG/24HR PATCH TRANSDERM SCH (09:02)
--- NOTE | 2020-06-26 09:31 | P.PN ---
Progress Note - Text Progress Note Date: 06/26/20 I reviewed medical records ,did interview patient and case was discussed in treatment team Slept 6 hours ,minimal participation in groups , ,no interaction with other patients No agitation or aggressive behavior Interval History: Patient was dressed in his own cloth ,poor historian ,was in lounge and agreed to follow me to office ,I told him that probate hearing is tomorrow and I gave him copy ,he replied "This different person <i do not have middle name ,these papers for Cailin Gutierrez ,I am not [place] or [place]"patient got anxious and hyperverbal ,repeating himself and asked if I have copy of his ID to proof that "I DO NOT HAVE MIDDLE NAME"",very concrete,I tried to discuss with him post discharge plan but he replied "I WANT TO HAVE MY OWN PLACE",he has been compliant with medications and denies any side-effect Mental Status Exam: General Appearance: Patient appears to be stated age is alert, ,cooperative. Patient appears to have marginal hygiene Behavior: Patient was seating calmly,no agitation ,fair eyes contact Speech: hyperverbal ,tangential Mood/Affect: flat affect Suicidality/Homicidality: denies any suicidal or homicidal ideation Perceptions: denies any hallucination or delusional thinking but seems preoccupied Though content/process: tangential with loose of association Memory and concentration: grossly intact Judgment and insight: limited Assessment Schizoaffective versus Schizophrenia Plan: -Patient continues to meet criteria for inpatient psychiatric admission for symptom stabilization and safety.,Continue Seroquel 800 mg ,increase Lamictal to 100 mg ,encourage participation in groups,SW on board for post-discharge plan
[2020-06-26] MEDS: QUEtiapine 400 MG TAB PO SCH (20:22)
[2020-06-27] MEDS: NICOTINE 14MG/24HR PATCH TRANSDERM SCH (09:48)
[2020-06-27] MEDS: lamoTRIgine 100 MG TAB PO SCH (09:49)
--- NOTE | 2020-06-27 11:28 | P.PN ---
Progress Note - Text Progress Note Date: 06/27/20 I reviewed medical records ,did interview patient and case was discussed in treatment team Slept 6 hours ,minimal participation in groups and minimal interaction with peers No agitation or aggressive behavior Probate hearing was at 10:45 AM ,[facility] explained to Francois deferral [place] versus probate hearing ,Francois gave verbal consent for deferral [place] for 6 months Francois told [facility] that he does not feel that [facility] treating him as "human being ",Tableman told him that he can talk to recipient right at [facility] regarding his concerns Interval History: Patient was dressed in his own cloth ,poor historian ,he talked with transcription after probate court saying "I was very nervous with [employer] ,did I do OK "ricci eason nervous and anxious ,limited intellectual function,compliant with medications and denies any side-effects He stated that he wants to talk with SW regarding his long-term saying "I want to go to different home ,they are treating me different " Mental Status Exam: General Appearance: Patient appears to be stated age is alert, ,cooperative. Patient appears to have marginal hygiene Behavior: Patient was seating calmly,no agitation ,fair eyes contact Speech: hyperverbal ,tangential Mood/Affect: flat affect Suicidality/Homicidality: denies any suicidal or homicidal ideation Perceptions: denies any hallucination or delusional thinking but seems preoccupied Though content/process: tangential with loose of association Memory and concentration: grossly intact Judgment and insight: limited Assessment Schizoaffective versus Schizophrenia Rule out Intellectual diasability Plan: -Patient continues to meet criteria for inpatient psychiatric admission for symptom stabilization and safety.,Continue Seroquel 800 mg and 100 mg Lamictal ,encourage participation in groups,SW on board for post-discharge plan Patient is on deferral [place] for 6 months ,consider d/c in 1-2 days Discussed post-discharge placement with SW and his guardian
[2020-06-27] MEDS: QUEtiapine 400 MG TAB PO SCH (20:25)
[2020-06-28] MEDS: NICOTINE 14MG/24HR PATCH TRANSDERM SCH (08:44)
[2020-06-28] MEDS: lamoTRIgine 100 MG TAB PO SCH (08:45)
--- NOTE | 2020-06-28 08:58 | P.PN ---
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 Patient appears to have marginal hygiene Behavior: Patient was seating calmly,no agitation ,fair eyes contact Speech: slurred ,limited in productivity ,tangential Mood/Affect: flat affect Suicidality/Homicidality: denies any suicidal or homicidal ideation Perceptions: denies any hallucination or delusional thinking but seems preoccupied Though content/process: tangential with loose of association Memory and concentration: grossly intact Judgment and insight: limited Assessment Schizoaffective versus Schizophrenia Rule out Intellectual diasability Plan: -Patient continues to meet criteria for inpatient psychiatric admission for symptom stabilization and safety.,Continue Seroquel 800 mg and 100 mg Lamictal ,encourage participation in groups,[facility] on board for post-discharge plan Patient is on deferral [place] for 6 months ,consider d/c in 1-2 days Discussed post-discharge placement with SW and his guardian
[2020-06-28] MEDS: QUEtiapine 400 MG TAB PO SCH (21:09)
[2020-06-29] MEDS: NICOTINE 14MG/24HR PATCH TRANSDERM SCH (08:41)
[2020-06-29] MEDS: lamoTRIgine 100 MG TAB PO SCH (08:41)
[2020-06-29 12:24] VITALS: BP 111/78; PULSE 91; RESP 12; TEMP 97.7
--- NOTE | 2020-06-29 20:38 | DS ---
DISCHARGE SUMMARY ADMITTING DATE: June 10, 2020. DISCHARGE DATE: June 29, 2020. MEDICAL CONSULT: Dr. Gibbs for history and physical. DISCHARGE DIAGNOSES: 1. Schizophrenia versus schizoaffective disorder, bipolar type. 2. Rule out intellectual disability. Initially patient was admitted under Dr. Sandy who did initial evaluation on June 11 and as he left on June 14, the patient was under my care since June 15 until he was discharged. HISTORY OF PRESENT ILLNESS: The patient is a 40 years old male who was living in a room and board, who presented to the emergency department in the custody of the police who filled out a petition. According to the police, the patient was found in the street, making no sense, and just mumbling. When he was seen by Dr. Sandy for initial evaluation, the patient did not answer any of his questions and he stated that it seems that the patient has been not following up at [facility] and because of Covid-19, he has been not going to [facility] [employer] as he used to be on [employer] 2 or 3 times a week. He stated as the patient is very poor historian, he could not get any more information about past psychiatric history. However, he stated that his medication was Haldol 5 mg twice a day and Seroquel 400 at bedtime, in addition to Lamictal 200. SOCIAL HISTORY: The patient stated that he is the 5th of 10 children. His father when the patient was 26 years of age. He denied that anyone in the family has psychiatric problem. He stated that he completed 12th grade. However, he does not remember if he was in special education or not, but he used to work briefly at [employer], but currently he has a public guardian and he is on social security disability. HOSPITAL COURSE: The patient was admitted under involuntary basis and Dr. Sandy had discontinued the Haldol and the Lamictal and he gradually titrated Seroquel up to 800 mg at bedtime. The patient was not participating in any group. He was just lying in his bed up for medication or for meeting. When I did start seeing the patient on June 15, it seems to me that his psychosis it was less and in a couple of days he was able to talk more about his parents and his current living situation as he is complaining that he wanted to move to different place because he does not like his current supervisor coil winding of his room and board and also he was thinking about he wanted to be his own guardian. As the patient was very hyperverbal and restless, I did add Lamictal or lamotrigine 100 mg daily. The patient refused to sign the deferral twice. However, when we did have full hearing on June 27, the horse show judge did explain to him exactly the defer and he did sign the deferral on June 27. I did discuss with the high school social studies tutor to refer him to ACT team, however, [facility] decided that the patient is not qualified for this. However, they will provide peer support to help the patient to socialize until the club house will be open again. I told the patient this information and he stated that he also rather prefers that he will stay in this place temporary and he wants his guardian to look for different housing. The patient did agree to take the medication as prescribed and he denied any side effects. The patient is always shy and anxious, having difficulty to express himself sometimes with very marginal hygiene and grooming, but very cooperative. There is no agitation throughout his stay here in the hospital, but his thinking is very concrete. At the time of the discharge, he denied any auditory or visual hallucination. He denied any suicidal or homicidal ideation, intent. He still has some paranoia as he does feel that people do not treat him the same way because "I look different, I am ". I did discuss the case with the team and it seems to me that the patient did reach his basic function level and he is not a harm to himself or any other. MENTAL STATUS EXAMINATION: At the time of the discharge, the patient appears his stated age. Marginal grooming. His gait is normal. There is some psychomotor retardation due to medication. He has fair eye contact. He is nonspontaneous but coherent and his voice is slow. At times, speech is slurred. He looks anxious. Affect is very flat. Differently there is poverty of his thought, but there is no delusional thinking reported. Denied suicidal thought. Denied homicidal thought. Denied any intention or plan. Denied any auditory or visual hallucination. His insight and judgment are fair. LABS: He had complete lab workup, on June 10. His blood glucose was borderline, was 156. His cholesterol is normal 150. However, HDL was low at 31. TSH is normal. His urine drug screen was negative. Vital signs at the time of discharge, temperature 97.5, pulse 63, blood pressure 113/68. DISCHARGE DIAGNOSES: 1. Schizophrenia versus schizoaffective disorder. 2. Rule out intellectual disability. PLAN: The patient will be discharged today. His guardian was notified by this. Patient was given one month supply of Seroquel 800 mg at bedtime and Lamictal 100 mg in the morning. Patient to follow up with [facility]. The patient is not an imminent to hurt himself or any other. Patient seems that he did reach his basic function levels. The patient was counseled about the compliance with the medication and the side effects of the medication and he did verbalize understanding. MMODL / IJN: [id number] /
== END 2020-06-29 12:29 | disposition home or self-care (01) | DRG 885 ==
LOC: EC 06:48 → 3MHU 14:08
PROVIDERS: ADMIT Psychiatry & Neurology Psychiatry; ATTEND Psychiatry & Neurology Psychiatry
DX: F20.9 Schizophrenia, unspecified (principal); F25.0 Schizoaffective disorder, bipolar type; H05.20 Unspecified exophthalmos; F79 Unspecified intellectual disabilities; E87.6 Hypokalemia; R41.843 Psychomotor deficit; R47.81 Slurred speech; T50.905A Adverse effect of unspecified drugs, medicaments and biological substances, initial encounter; F17.210 Nicotine dependence, cigarettes, uncomplicated; Z71.6 Tobacco abuse counseling; Z79.899 Other long term (current) drug therapy
CPT/HCPCS: 36415; 80053; 80061; 80306; 80320; 81001; 83036; 84443; 85025; 96360; 99285